=== PATIENT | female | born 1980 | race Caucasian/White ===

== ENCOUNTER 2017-01-28 16:09 | Emergency (ER) | payer OTHER ==
[~2017-01-28] VITALS: Ht 167.6 cm; Wt 100.0 kg
[2017-01-28 16:14] VITALS: BP 158/98; PULSE 90; RESP 18; TEMP 98.6; O2SAT 100
--- NOTE | 2017-01-28 16:22 | PD ---
Physical Exam Time Seen by Provider: 16:19 Narrative Pt presents to the ED for evaluation of fall while at work twisting her right ankle. Cannot bear weight on right ankle. Denies head trauma or LOC. LMP . VSS. Patient awaiting bed placement. Data Data Last Documented VS Vital Signs Date Time Temp Pulse Resp B/P Pulse Ox O2 Delivery O2 Flow Rate FiO2 01/28/17 16:14 98.6 90 18 158/98 100 Room Air MDM Supervised Visit with PRACHI: Amy Macias Jan 28, 2017 16:22
--- NOTE | 2017-01-28 16:35 | PD ---
HPI Chief Complaint: Injury Time Seen by Provider: 16:33 Travel History International Travel<30 days: No Contact w/Intl Traveler<30days: No Traveled to known affect area: No History of Present Illness HPI Patient is a 36-year-old female presenting to the emergency department for evaluation of right ankle pain. Patient states she twisted her ankle at work approximately one hour ago. Patient is mainly [place]ian-speaking but does speak broken Slovenian. As her pain as a 7 out of 10 and states it's sore and throbbing. She is unable to completely bear weight. She denies any other injury, she denies any weakness or numbness in her extremities. No alleviating factors, pain is exacerbated by ambulation and activity. PFSH Past Medical History Cardiovascular Problems: Yes (HTN) ?: Not LMP: 01/19/17 Social History Alcohol Use: No Tobacco Use: No Substance Use: No Review of Systems Except as stated in HPI: all other systems reviewed are Neg Musculoskeletal: Positive: Myalgias, Arthralgias, Edema, Pain Skin: Positive Change in Pigmentation Physical Exam Narrative GENERAL: Well-nourished, well-developed patient. SKIN: Focused skin assessment warm/dry. HEAD: Normocephalic. EYES: No scleral icterus. No injection or drainage. NECK: Supple, trachea midline. No JVD or lymphadenopathy. CARDIOVASCULAR: Regular rate and rhythm without murmurs, gallops, or rubs. RESPIRATORY: Breath sounds equal bilaterally. No accessory muscle use. GASTROINTESTINAL: Abdomen soft, non-tender, nondistended. MUSCULOSKELETAL: No cyanosis, edema and mild ecchymosis noted to the lateral aspect of the right ankle. Decreased range of motion with flexion and extension of right foot. Moderately tender to palpation on exam. Patient is neurovascularly intact. BACK: Nontender without obvious deformity. No CVA tenderness. Data Data Last Documented VS Vital Signs Date Time Temp Pulse Resp B/P Pulse Ox O2 Delivery O2 Flow Rate FiO2 01/28/17 16:14 98.6 90 18 158/98 100 Room Air Orders Ankle, Complete ([id number]) (01/28/17 ) Support Splint (01/28/17 17:11) Crutches (01/28/17 17:11) MDM Medical Decision Making Medical Screen Exam Complete: Yes Emergency Medical Condition: Yes Interpretation(s) Vital Signs Date Time Temp Pulse Resp B/P Pulse Ox O2 Delivery O2 Flow Rate FiO2 01/28/17 16:14 98.6 90 18 158/98 100 Room Air Differential Diagnosis Sprain versus strain versus fracture versus other Narrative Course Patient is a 36-year-old mainly [place]ian-speaking female who does speak broken Slovenian presents to the emergency department for evaluation of right ankle pain after twisting it while working today. She is neurovascularly intact. Imaging ordered and pending. X-ray of the right ankle is negative for acute fracture, ankle mortise intact. Patient will be placed in an ankle stirrup and given crutches. She is encouraged to rest, ice, elevate extremity. She is encouraged to avoid weightbearing until reevaluated by employee med, a primary care provider. Patient verbalized understanding of instructions. Patient is stable for discharge. Diagnosis Primary Impression: Right ankle sprain Qualified Code: S93.401A - Sprain of right ankle, unspecified ligament, initial encounter Referrals: Primary Care Physician 1 week Patient Instructions: Ankle Sprain (ED), Ankle Stirrup Splint (ED), General Instructions, Swollen Ankle Joint (ED) Departure Forms: Tests/Procedures, Work Release Enter return to work date: Jan 29, 2017 Special Instructions: No weightbearing on right foot until cleared by primary doctor or employee med follow-up Additional Instructions: Rest, ice, elevate extremity Follow-up with a primary doctor or at employee med Avoid weightbearing until reevaluated Return to emergency department for any new or worsening symptoms Med/Other Pt SpecificInfo: Prescription(s) given Scripts Ibuprofen 800 Mg [id number] Mg PO Q6HR PRN (PAIN) #40 TAB Ref 0 Prov:Dannielle Estrada 01/28/17 Disposition: 01 DISCHARGE HOME Condition: Stable Dannielle Estrada Jan 28, 2017 16:35
--- NOTE | 2017-01-28 17:09 | RADRPT ---
EXAM DATE/TIME: 01/28/2017 16:57 [facility] COMPARISON: No previous studies available for comparison. INDICATIONS : Right ankle pain after fall. MEDICAL HISTORY : None. SURGICAL HISTORY : None. ENCOUNTER: Initial ACUITY: 1 day PAIN SCORE: 7/10 LOCATION: Right anterior ankle. FINDINGS: Soft tissue swelling at the lateral aspect of the ankle. Ankle mortise is approximated. No fracture o r dislocation. CONCLUSION: Soft tissue swelling is noted. Hung Valente MD on January 28, 2017 at 17:06 Board Certified Radiologist. This report was verified electronically.
[2017-01-28] MEDS ORDERED: IBUP800T23 PO (17:16)
== END 2017-01-28 18:07 | disposition home or self-care (01) ==
LOC: NEPK 16:09
DX: S93.401A Sprain of unspecified ligament of right ankle, initial encounter (principal); X50.1XXA Overexertion from prolonged static or awkward postures, initial encounter; I10 Essential (primary) hypertension
CPT/HCPCS: 73610; 99283; E0113; L1906